=== PATIENT | female | born 1985 | race American Indian/Alaskan Native ===

== ENCOUNTER 2017-04-23 16:42 | Emergency (ER) | payer OTHER ==
--- NOTE | 2017-04-23 18:15 | C.PDOC ---
History Of Present Illness 31 y/o female presents to the ED for evaluation recurrent seizures. Pt was taking Keppra 500 PO BID until 1 week ago. Medication stopped by new neurologist in [facility] due to normal workup and no seizure activity since January 2016. Denies history of brain injury. Normal head CT and ECG in outpatient. Pt denies vomiting, headache, chest pain, SOB or any other complaints. Time Seen by Provider: 04/23/17 17:56 Chief Complaint (Nursing): Seizure History Per: Patient History/Exam Limitations: no limitations Precipitating Factor(s): Recent Change In Medication Or Dose Post-ictal Period: No Severity: Mild Recent travel outside of the [place]: No Past Medical History Reviewed: Historical Data, Nursing Documentation, Vital Signs Vital Signs: Last Vital Signs Temp 98.8 F 04/23/17 19:27 Pulse 69 04/23/17 19:27 Resp 18 04/23/17 19:27 BP 114/74 04/23/17 19:27 Pulse Ox 100 04/23/17 19:27 - Medical History PMH: Seizures Family History: States: Unknown Family Hx - Social History Hx Alcohol Use: No Hx Substance Use: No Review Of Systems Except As Marked, All Systems Reviewed And Found Negative. Constitutional: Negative for: Fever Cardiovascular: Negative for: Chest Pain Respiratory: Negative for: Shortness of Breath Gastrointestinal: Negative for: Vomiting Neurological: Positive for: Seizures. Negative for: Headache Physical Exam - Physical Exam Appears: Non-toxic, No Acute Distress Skin: Warm, Dry, No Rash Head: Atraumatic, Normacephalic Eye(s): bilateral: Normal Inspection, PERRL, EOMI Neck: Normal, Normal ROM, Supple Chest: Symmetrical Cardiovascular: Rhythm Regular, No Murmur Respiratory: Normal Breath Sounds, No Rales, No Rhonchi, No Wheezing Gastrointestinal/Abdominal: Normal Exam, Soft, No Tenderness Extremity: Normal ROM Extremity: Bilateral: Atraumatic Neurological/Psych: Oriented x3, Normal Speech, Normal Cognition ED Course And Treatment - Laboratory Results Result Diagrams: 04/23/17 18:26 04/23/17 18:26 Lab Interpretation: Normal (ua/tox neg.) Urine POC: Negative O2 Sat by Pulse Oximetry: 99 (room air) Pulse Ox Interpretation: Normal Progress Note: EKG, CXR, labs, UA, IV fluids, keppra Reevaluation Time: 19:30 Reassessment Condition: Improved Medical Decision Making Medical Decision Making: seizure disorder w normal w/u by outpatient Neuro Off Keppra 500 BID for 1 week with recurrent seizure normal workup today, defer repeat head ct for normal exam Plan to restart Keppra and f/u with her Neurologist. Disposition Doctor Will See Patient In The: Office Counseled Patient/Family Regarding: Studies Performed, Diagnosis - Disposition Disposition: HOME/ ROUTINE Disposition Time: 19:31 Condition: GOOD - Clinical Impression Clinical Impression: Seizure disorder, Seizure - Scribe Statement The provider has reviewed the documentation as recorded by the Faye Zheng Provider Attestation: All medical record entries made by the Faye were at my direction and personally dictated by me. I have reviewed the chart and agree that the record accurately reflects my personal performance of the history, physical exam, medical decision making, and the department course for this patient. I have also personally directed, reviewed, and agree with the discharge instructions and disposition.
[2017-04-23 18:31] LABS: BASO % 0.6 % (0.0-2.0); EOS % 0.7 % (0.0-4.0); HEMATOCRIT 35.7 % (34.0-47.0); LYMPH # 1.2 K/uL (1.0-4.3); LYMPH % 23.6 % (20.0-40.0); MEAN CELL VOLUME 78.8 fL (81.0-99.0); MEAN CORPUSCULAR HGB CONC 31.7 g/dL (33.0-37.0); MEAN PLATELET VOLUME 8.9 fL (7.2-11.7); MONO # 0.2 K/uL (0.0-0.8); MONO % 4.7 % (0.0-10.0); NRBC % 0.1 % (0.0-2.0); RED CELL DISTRIBUTION WIDTH 13.9 % (11.5-14.5)
--- NOTE | 2017-04-23 18:31 | RAD ---
HISTORY: Seizure COMPARISON: None available. TECHNIQUE: Chest, one view. FINDINGS: LUNGS: Subtle asymmetric left lower lobe haziness may reflect small layering effusion and or infiltrate. No definite pneumothorax. Please note that chest x-ray has limited sensitivity for the detection of pulmonary masses. CARDIOVASCULAR: The cardiomediastinal silhouette appears within normal limits of size. OSSEOUS STRUCTURES: No acute osseous abnormality identified. VISUALIZED UPPER ABDOMEN: Unremarkable. OTHER FINDINGS: None. IMPRESSION: Subtle asymmetric left lower lobe haziness may reflect small layering effusion and or infiltrate. Correlate clinically. Chest PA and lateral suggested for further evaluation.
[2017-04-23 18:41] LABS: CHLORIDE 105 mmol/L (98-107); POTASSIUM 4.1 mmol/L (3.6-5.2); SODIUM 135 mmol/L (132-148)
[2017-04-23 18:43] LABS: GFR AFRICAN-AMERICAN > 60
[2017-04-23 18:44] LABS: ALB/GLOB RATIO 1.1 (1.0-2.1); ALKALINE PHOSPHATASE 52 U/L (38-126); ALT/SGPT 15 U/L (9-52); AST/SGOT 20 U/L (14-36); BILIRUBIN,TOTAL 0.4 mg/dL (0.2-1.3); BLOOD UREA NITROGEN 6 mg/dL (7-17); CALCIUM 8.7 mg/dl (8.6-10.4); CARBON DIOXIDE 22 mmol/L (22-30); GLUCOSE,RANDOM 83 mg/dL (65-105); TOTAL PROTEIN 6.8 g/dL (6.3-8.3)
[2017-04-23 19:12] LABS: RBC URINE < 1 /hpf (0-3); TRANSITIONAL EPITHIAL < 1 /hpf (0-3); URINE BACTERIA RARE (<OCC); URINE BILIRUBIN NEGATIVE (NEGATIVE); URINE BLOOD NEGATIVE (NEGATIVE); URINE COLOR Straw (YELLOW); URINE GLUCOSE (UA) NORMAL (Normal); URINE KETONE NEGATIVE (NEGATIVE); URINE LEUKOCYTE ESTERASE NEG Leu/uL (Negative); URINE PROTEIN NEGATIVE (NEGATIVE); URINE UROBILINOGEN NORMAL mg/dL (0.2-1.0); WBC URINE 1 /hpf (0-5)
[2017-04-23 19:28] VITALS: BP 114/74; PULSE 69; RESP 18; TEMP 98.8
[2017-04-23 19:32] VITALS: O2SAT 99
== END 2017-04-23 19:59 | disposition home or self-care (01) ==
LOC: C.ER 16:42
DX: G40.909 Epilepsy, unspecified, not intractable, without status epilepticus (principal)